=== PATIENT | female | born 1975 | race African-American/Black ===

== ENCOUNTER 2018-11-14 19:24 | Emergency (ER) | payer OTHER ==
--- NOTE | 2018-11-14 20:09 | RAD REPORT ---
EXAM DESCRIPTION: RAD - Ankle Right 3 View - 11/14/2018 7:55 pm CLINICAL HISTORY: PAIN COMPARISON: No comparisons FINDINGS: Soft tissue swelling is seen about the ankle. No fracture or dislocation seen. Small avuls ion is noted about the medial malleolus.
[2018-11-14] MEDS ORDERED: IBUPROFEN 400 MG TAB ONE (20:29)
--- NOTE | 2018-11-14 20:51 | EDPHYS ---
Physician Documentation [facility] Name: Ekaterina Chaudhari Age: 43 yrs Sex: Female : 1975 Arrival Date: 11/14/2018 Time: 19:29 Bed 5 Private MD: ED Physician Eric Martell HPI: 11/14 20:02 This 43 yrs old Black Female presents to ER via Ambulatory with complaints of Ankle kdr Injury. 20:02 The patient presents with decreased range of motion, an injury, pain, that is acute. kdr The complaints affect the right ankle. Onset: The symptoms/episode began/occurred yesterday. Context: The problem was sustained at home, resulted from The mechanism of injury involved inversion of the affected ankle. The patient can partially bear weight on the affected extremity. the patient is able to ambulate, with mild difficulty. Associated signs and symptoms: The patient has no apparent associated signs or symptoms. Modifying factors: The symptoms are alleviated by sitting, the symptoms are aggravated by weight bearing, movement. Severity of symptoms: At their worst the symptoms were mild, in the emergency department the symptoms are unchanged. The patient has not experienced similar symptoms in the past. The patient has not recently seen a physician. 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 - Social history:: Smoking status: Patient/guardian denies using tobacco. - Ebola Screening: : No symptoms or risks identified at this time. ROS: 20:02 Constitutional: Negative for fever, chills, and weight loss. kdr 20:02 MS/extremity: Positive for pain, swelling, tenderness, of the anterior aspect of right ankle. Exam: 20:02 Constitutional: This is a well developed, well nourished patient who is awake, alert, kdr and in no acute distress. Head/Face: Normocephalic, atraumatic. Eyes: Pupils equal round and reactive to light, extra-ocular motions intact. Lids and lashes normal. Conjunctiva and sclera are non-icteric and not injected. Cornea within normal limits. Periorbital areas with no swelling, redness, or edema. 20:02 Musculoskeletal/extremity: Extremities: grossly normal except: noted in the anterior aspect of right ankle and dorsum of right foot: pain. Vital Signs: 19:31 BP 121 / 87; Pulse 78; Resp 16; Temp 97.8; Pulse Ox 98% on R/A; Weight 101.15 kg; la1 Height 5 ft. 7 in. (170.18 cm); Pain 7/10; 20:33 BP 124 / 84; Pulse 74; Resp 16 S; Pulse Ox 97% on R/A; jd3 19:31 Body Mass Index 34.93 (101.15 kg, 170.18 cm) la1 MDM: 20:50 Patient medically screened. kdr 11/15 00:23 Data reviewed: vital signs, nurses notes, radiologic studies. Counseling: I had a kdr detailed discussion with the patient and/or guardian regarding: the historical points, exam findings, and any diagnostic results supporting the discharge/admit diagnosis, radiology results, the need for outpatient follow up. 11/14 19:37 Order name: Ankle Right 3 View XRAY; Complete Time: 20:43 11/14 20:53 Order name: Splint - Ankle: Aircast; Complete Time: 21:24 kdr 11/14 20:53 Order name: Crutches; Complete Time: 21:24 kdr Administered Medications: 11/14 20:19 Drug: Ibuprofen 800 mg Route: PO; aa1 21:15 Follow up: Response: No adverse reaction jd3 Disposition: 11/14/18 20:50 Discharged to Home. Impression: Dorsal Tarsal navicular fracture. - Condition is Stable. - Discharge Instructions: Tarsal Navicular Fracture, Avulsion Fracture of the Foot. - Prescriptions for Tylenol- Codeine #3 300-30 mg Oral Tablet - take 2 tablets by ORAL route every 4-6 hours As needed Take onoe or two tablets every four to six hours; 15 tablet. - Medication Reconciliation Form, Thank You Letter, Prescription Opioid Use, Work release form form. - Follow up: Private Physician; When: 2 - 3 days; Reason: If symptoms return, Further diagnostic work-up, Recheck today's complaints, Continuance of care, Re-evaluation by your physician. - Problem is new. - Symptoms have improved. Signatures: Dispatcher [employer] EDGracie Frances RN RN aa1 Eric Martell MD MD kdr Aaron Garcia RN RN la1 Stewart Herrera RN RN jd3 Corrections: (The following items were deleted from the chart) 21:26 20:50 11/14/2018 20:50 Discharged to Home. Impression: Dorsal Tarsal navicular jd3 fracture. Condition is Stable. Forms are Work release form, Medication Reconciliation Form, Thank You Letter, Antibiotic Education, Prescription Opioid Use. Follow up: Private Physician; When: 2 - 3 days; Reason: If symptoms return, Further diagnostic work-up, Recheck today's complaints, Continuance of care, Re-evaluation by your physician. Problem is new. Symptoms have improved. kdr
--- NOTE | 2018-11-14 20:51 | ER ---
Nurse's Notes [facility] Name: Ekaterina Chaudhari Age: 43 yrs Sex: Female : 1975 Arrival Date: 11/14/2018 Time: 19:29 Bed 5 Private MD: Diagnosis: Dorsal Tarsal navicular fracture Presentation: 11/14 19:30 Presenting complaint: Patient states: I rolled my right ankle on thrusday and have been la1 having pain since. Transition of care: patient was not received from another setting of care. Onset of symptoms was November 14, 2018. Risk Assessment: Do you want to hurt yourself or someone else? Patient reports no desire to harm self or others. Initial Sepsis Screen: Does the patient meet any 2 criteria? No. Patient's initial sepsis screen is negative. Does the patient have a suspected source of infection? No. Patient's initial sepsis screen is negative. Care prior to arrival: None. 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 - Social history:: Smoking status: Patient/guardian denies using tobacco. - Ebola Screening: : No symptoms or risks identified at this time. Screenin:29 Abuse screen: Denies threats or abuse. Nutritional screening: No deficits noted. jd3 Tuberculosis screening: No symptoms or risk factors identified. Fall Risk Ambulatory Aid- None/Bed Rest/Nurse Assist (0 pts). Gait- Normal/Bed Rest/Wheelchair (0 pts) Mental Status- Oriented to own ability (0 pts). Total Gale Fall Scale indicates No Risk (0-24 pts). Assessment: 20:28 General: Appears in no apparent distress. uncomfortable, Behavior is calm, cooperative, jd3 appropriate for age. Pain: Complains of pain in right ankle Quality of pain is described as aching. Neuro: Level of Consciousness is awake, alert, obeys commands, Oriented to person, place, time, situation, Appropriate for age. Cardiovascular: Capillary refill < 3 seconds Patient's skin is warm and dry. Respiratory: Airway is patent Respiratory effort is even, unlabored, Respiratory pattern is regular, symmetrical. GI: No signs and/or symptoms were reported involving the gastrointestinal system. : No signs and/or symptoms were reported regarding the genitourinary system. EENT: No signs and/or symptoms were reported regarding the EENT system. Derm: Skin is intact, Skin is dry, Skin is normal, Skin temperature is warm. Musculoskeletal: Circulation, motion, and sensation intact. Range of motion: limited in right ankle Reports pain in right ankle. 21:26 Reassessment: Patient appears in no apparent distress at this time. Patient and/or jd3 family updated on plan of care and expected duration. Pain level reassessed. Patient is alert, oriented x 3, equal unlabored respirations, skin warm/dry/pink. Patient states feeling better. Vital Signs: 19:31 BP 121 / 87; Pulse 78; Resp 16; Temp 97.8; Pulse Ox 98% on R/A; Weight 101.15 kg; la1 Height 5 ft. 7 in. (170.18 cm); Pain 7/10; 20:33 BP 124 / 84; Pulse 74; Resp 16 S; Pulse Ox 97% on R/A; jd3 19:31 Body Mass Index 34.93 (101.15 kg, 170.18 cm) la1 ED Course: 19:29 Patient arrived in ED. mr 19:31 Triage completed. la1 19:32 Arm band placed on left wrist. la1 19:33 Eric Martell MD is Attending Physician. kdr 19:54 Ankle Right 3 View XRAY In Process Unspecified. EDMS 20:14 Stewart Herrera, RN is Primary Nurse. jd3 20:30 Patient has correct armband on for positive identification. Bed in low position. Call jd3 light in reach. Side rails up X 1. Adult w/ patient. 21:25 No provider procedures requiring assistance completed. Patient did not have IV access jd3 during this emergency room visit. Administered Medications: 20:19 Drug: Ibuprofen 800 mg Route: PO; aa1 21:15 Follow up: Response: No adverse reaction jd3 Outcome: 20:50 Discharge ordered by . kdr 21:25 Discharged to home ambulatory, with crutches. jd3 21:25 Condition: stable 21:25 Discharge instructions given to patient, family, Instructed on discharge instructions, follow up and referral plans. medication usage, Demonstrated understanding of instructions, follow-up care, medications, Prescriptions given X 1. 21:26 Patient left the ED. jd3 Signatures: Dispatcher [employer] EDMS Gracie Gongora RN RN aa1 Eric Martell MD MD kdr Rivera, Mary mr Radha, HARRIS Walker RN la1 Stewart Herrera RN RN jd3
== END 2018-11-14 21:26 | disposition home or self-care (01) ==
LOC: ER 19:24
DX: S92.251A Displaced fracture of navicular [scaphoid] of right foot, initial encounter for closed fracture (principal); X58.XXXA Exposure to other specified factors, initial encounter; Y93.89 Activity, other specified; Y92.009 Unspecified place in unspecified non-institutional (private) residence as the place of occurrence of the external cause
CPT/HCPCS: 99283

== ENCOUNTER 2019-01-19 02:59 | Emergency (ER) | payer OTHER ==
--- OUTSIDE RECORDS SUMMARY | 2019-01-19 03:03 | XMS REPORT | Clinical Summary ---
:1975 Author Organization [facility] Address [address] [place] [address] Care Team Providers Name Role Phone Sharpalpa Primary Care Provider Allergies No Known Allergies Medications Not on file Active Problems Not on file Social History Tobacco Use Types Packs/Day Years Used Date Never Assessed Sex Assigned at Date Recorded Not on file Job Start Date Occupation Industry Not on file Not on file Not on file Travel History Travel Start Travel End No recent travel history available. Last Filed Vital Signs Not on file Plan of Treatment Not on file Results Not on fileafter 01/18/2018
[2019-01-19 03:51] LABS: Absolute Lymphocytes (CBC) 0.7 K/uL (0.7-4.9); Basophils % 0.8 % (0-1.3); Hematocrit 39.1 % (36.0-45.0); Lymphocytes % 12.4 % (15.3-44.8); MPV 8.9 fL (7.6-11.3); RBC Red Blood Cell Count 4.29 M/uL (3.86-4.86)
[2019-01-19 03:56] LABS: Urine Blood TRACE (NEG); Urine Glucose NEGATIVE (NEG); Urine Protein NEGATIVE (NEG)
[2019-01-19 04:10] LABS: Albumin 3.5 g/dL (3.4-5.0); Bilirubin Total 0.8 mg/dL (0.2-1.0); Ferritin 97.3 ng/mL (8-388); Potassium 4.1 mmol/L (3.5-5.1); Protein, Total 7.6 g/dL (6.4-8.2)
[2019-01-19 04:41] LABS: Urine Bacteria 20-50 /HPF (<20); Urine Culture Reflex Order REFLEXED; Urine RBC <5 /HPF (NONE SEEN)
--- NOTE | 2019-01-19 08:00 | ER ---
Nurse's Notes [facility] Name: Ekaterina Chaudhari Age: 43 yrs Sex: Female : 1975 Arrival Date: 01/19/2019 Time: 03:00 Bed 15 Private MD: Diagnosis: Ulceration of vagina Presentation: 01/19 03:17 Presenting complaint: Patient states: she is c/o sinus congestion, abdominal pain, bb cramping, vaginal bleeding s/p hysterectomy, pt had fever of 101 but did not take any medication for it. Transition of care: patient was not received from another setting of care. Onset of symptoms was January 18, 2019. Risk Assessment: Do you want to hurt yourself or someone else? Patient reports no desire to harm self or others. Initial Sepsis Screen: Does the patient meet any 2 criteria? No. Patient's initial sepsis screen is negative. Does the patient have a suspected source of infection? No. Patient's initial sepsis screen is negative. Care prior to arrival: None. 03:17 Method Of Arrival: Ambulatory bb 03:17 Acuity: DIANE 3 bb 03:23 Note pt also c/o urinary frequency. 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 - Social history:: Smoking status: Patient/guardian denies using tobacco, Patient/guardian denies using alcohol. - Ebola Screening: : No symptoms or risks identified at this time. Screenin:44 Abuse screen: Denies threats or abuse. Denies injuries from another. Nutritional lp1 screening: No deficits noted. Tuberculosis screening: No symptoms or risk factors identified. Fall Risk None identified. Assessment: 03:43 General: Appears in no apparent distress. Behavior is appropriate for age. Pain: lp1 Complains of pain in suprapubic area. Neuro: Level of Consciousness is awake, alert, obeys commands, Oriented to person, place, time, situation. Cardiovascular: Patient's skin is warm and dry. Respiratory: Respiratory effort is even, unlabored. GI: Abdomen is non-distended. : Reports vaginal bleeding that is brown. EENT: No signs and/or symptoms were reported regarding the EENT system. Derm: Skin is intact, Skin is dry, Skin is normal. Musculoskeletal: No deficits noted. 05:00 Reassessment: Patient appears in no apparent distress at this time. No changes from lp1 previously documented assessment. Patient resting, eyes closed, respirations unlabored. 06:20 Reassessment: Patient appears in no apparent distress at this time. Patient is alert, lp1 oriented x 3, equal unlabored respirations, skin warm/dry/pink. Patient returned form CT; aware of waiting for results. 07:09 General: Appears in no apparent distress. uncomfortable, Behavior is calm, cooperative, hj appropriate for age. Pain: Complains of pain in suprapubic area. Neuro: Level of Consciousness is awake, alert, obeys commands, Oriented to person, place, time, situation, Appropriate for age. Cardiovascular: Capillary refill < 3 seconds Patient's skin is warm and dry. Respiratory: Reports pain with respiration Respiratory effort is even, unlabored, Respiratory pattern is regular, symmetrical. GI: No signs and/or symptoms were reported involving the gastrointestinal system. : No signs and/or symptoms were reported regarding the genitourinary system. 07:54 Reassessment: ED provider with counter intelligence technician in room for pelvic exam. Vital Signs: 03:22 BP 119 / 84; Pulse 95; Resp 16 S; Temp 99.7(O); Pulse Ox 98% on R/A; Weight 99.79 kg bb (R); Height 5 ft. 6 in. (167.64 cm) (R); Pain 4/10; 06:20 BP 112 / 94; Pulse 81; Resp 16; Temp 98.7(O); Pulse Ox 100% on R/A; lp1 07:10 BP 119 / 80; Pulse 80; Resp 18; Temp 98.1(O); Pulse Ox 98% on R/A; hj 08:22 BP 120 / 78; Pulse 79; Resp 18; Pulse Ox 100% on R/A; hj 03:22 Body Mass Index 35.51 (99.79 kg, 167.64 cm) ED Course: 03:00 Patient arrived in ED. ds1 03:03 Samir Elliott MD is Attending Physician. ps1 03:05 Nany Nick, RN is Primary Nurse. lp1 03:21 Triage completed. bb 03:22 Arm band placed on Patient placed in an exam room, on a stretcher, on pulse oximetry. bb 03:25 Inserted saline lock: 20 gauge in right antecubital area, using aseptic technique. lp1 Blood collected. 03:39 Radiology exam delayed due to lab results not completed at this time. (BUN/Creatinine). kw1 03:44 Patient has correct armband on for positive identification. lp1 06:20 CT Abd/Pelvis - IV Contrast Only In Process Unspecified. EDMS 06:21 No provider procedures requiring assistance completed. lp1 07:50 Attending Physician role handed off by Samir Elliott MD 07:50 Anthony Estrada MD is Attending Physician. gs 08:21 IV discontinued, intact, bleeding controlled, No redness/swelling at site. Pressure hj dressing applied. Administered Medications: No medications were administered Outcome: 07:59 Discharge ordered by . gs 08:20 Discharged to home ambulatory. hj 08:20 Condition: stable 08:20 Discharge instructions given to patient, Instructed on discharge instructions, follow up and referral plans. medication usage, Demonstrated understanding of instructions, follow-up care, medications, Prescriptions given X 1. 08:21 Patient left the ED. hj Signatures: Dispatcher [employer] [facility] Roxy El ds1 Sofy Dorman RN RN bb Nany Nick, RN RN lp1 Torrey Pagan, RN Anthony Byrne MD MD Samir Elliott MD MD [facility] Shandra Mancini kw1
--- NOTE | 2019-01-19 08:01 | EDPHYS ---
Physician Documentation [facility] Name: Ekaterina Chaudhari Age: 43 yrs Sex: Female : 1975 Arrival Date: 01/19/2019 Time: 03:00 Bed 15 Private MD: ED Physician Anthony Estrada HPI: 01/19 05:31 This 43 yrs old Black Female presents to ER via Ambulatory with complaints of Vaginal ps1 Bleeding, Headache, Fever. 05:31 patient states that she woke up tonight with vaginal bleeding from sleep. She states ps1 that she is s/p hysterectomy 2/2 fibroids years ago. Additionally has Fe anemia. No abnormal pap smears in past. Recently started taking celexa. States that she also has sinus congestion. No fever. Additionally states that she has polyuria, polydipsia, and frequency. 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 - Social history:: Smoking status: Patient/guardian denies using tobacco, Patient/guardian denies using alcohol. - Ebola Screening: : No symptoms or risks identified at this time. ROS: 05:31 Constitutional: Negative for fever, chills, and weight loss, Eyes: Negative for injury, ps1 pain, redness, and discharge, Cardiovascular: Negative for chest pain, palpitations, and edema, Respiratory: Negative for shortness of breath, cough, wheezing, and pleuritic chest pain. 05:31 Abdomen/GI: Positive for abdominal pain, constipation. 05:31 : Positive for urinary frequency, hematuria, vaginal bleeding. 05:31 Endocrine: Positive for polydipsia, polyuria. Exam: 05:31 Constitutional: This is a well developed, well nourished patient who is awake, alert, ps1 and in no acute distress. Head/Face: Normocephalic, atraumatic. Eyes: Pupils equal round and reactive to light, extra-ocular motions intact. Lids and lashes normal. Conjunctiva and sclera are non-icteric and not injected. Cardiovascular: Regular rate and rhythm. No gallops, murmurs, or rubs. Normal PMI, no JVD. No pulse deficits. Respiratory: Lungs have equal breath sounds bilaterally, clear to auscultation and percussion. No rales, rhonchi or wheezes noted. No increased work of breathing, no retractions or nasal flaring. Abdomen/GI: Soft, non-tender, with normal bowel sounds. No distension or tympany. No guarding or rebound. No evidence of tenderness throughout. Skin: Warm, dry with normal turgor. Normal color with no rashes, no lesions, and no evidence of cellulitis. MS/ Extremity: Pulses equal, no cyanosis. Neurovascular intact. Full, normal range of motion. Neuro: Awake and alert, GCS 15, oriented to person, place, time, and situation. Cranial nerves II-XII grossly intact. Sensory grossly intact. 07:51 : Pelvic Exam: Speculum exam: d/c appears to have cuff ulcer no bleeding. Vital Signs: 03:22 BP 119 / 84; Pulse 95; Resp 16 S; Temp 99.7(O); Pulse Ox 98% on R/A; Weight 99.79 kg bb (R); Height 5 ft. 6 in. (167.64 cm) (R); Pain 4/10; 06:20 BP 112 / 94; Pulse 81; Resp 16; Temp 98.7(O); Pulse Ox 100% on R/A; lp1 07:10 BP 119 / 80; Pulse 80; Resp 18; Temp 98.1(O); Pulse Ox 98% on R/A; hj 08:22 BP 120 / 78; Pulse 79; Resp 18; Pulse Ox 100% on R/A; hj 03:22 Body Mass Index 35.51 (99.79 kg, 167.64 cm) bb MDM: 03:37 Patient medically screened. ps1 07:51 Data reviewed: vital signs, nurses notes, lab test result(s), radiologic studies. Counseling: I had a detailed discussion with the patient and/or guardian regarding: the historical points, exam findings, and any diagnostic results supporting the discharge/admit diagnosis, lab results, radiology results, the need for outpatient follow up, an OB/Gyne specialist. Response to treatment: There is no appreciated change of the patient's symptoms at this time, and as a result, I will discharge patient. 01/19 03:17 Order name: CBC with Diff; Complete Time: 04:53 ps1 01/19 03:17 Order name: CMP; Complete Time: 04:53 ps1 01/19 03:17 Order name: Iron Level; Complete Time: 04:53 ps1 01/19 03:35 Order name: Urine Dipstick--Ancillary (enter results); Complete Time: 04:53 ar5 01/19 04:11 Order name: Urine Microscopic Only; Complete Time: 04:53 lp1 01/19 04:42 Order name: Urine Culture EDMS 01/19 03:17 Order name: Urine Dipstick-Ancillary (obtain specimen); Complete Time: 03:45 ps1 01/19 05:30 Order name: CT Abd/Pelvis - IV Contrast Only ps1 Administered Medications: No medications were administered Disposition: 01/19/19 07:59 Discharged to Home. Impression: Ulceration of vagina. - Condition is Stable. - Prescriptions for Metronidazole 0.75 % Vaginal Gel - insert 37.5 milligram by VAGINAL route once daily As needed in the morning and evening; 1 tube. - Medication Reconciliation Form, Thank You Letter, Antibiotic Education, Prescription Opioid Use form. - Follow up: Private Physician; When: 2 - 3 days; Reason: Re-evaluation by your physician. Signatures: Dispatcher [facility] Sofy Dorman RN RN bb Joaquin, Henry, RN RN hj Starr, Gregory, MD MD gs Samir Elliott MD MD ps1 Corrections: (The following items were deleted from the chart) 03:51 03:18 Abdomen Pelvis W Con+CT.RAD.BRZ ordered. [facility] 08:21 07:59 01/19/2019 07:59 Discharged to Home. Impression: Ulceration of vagina. Condition hj is Stable. Forms are Medication Reconciliation Form, Thank You Letter, Antibiotic Education, Prescription Opioid Use. Follow up: Private Physician; When: 2 - 3 days; Reason: Re-evaluation by your physician. gs
--- NOTE | 2019-01-19 09:46 | RAD REPORT ---
EXAM DESCRIPTION: CT - Abdomen Pelvis W Contrast - 01/19/2019 6:48 am CLINICAL HISTORY: The patient is 43 years old and is Female; vaginal bleeding, constipation, s/p hys t TECHNIQUE: Axial computed tomography images of the abdomen and pelvis with intravenous contrast. S agittal and coronal reformatted images were created and reviewed. This CT exam was performed using one or more of the following dose reduction techniques: automated exposure control, adjustment of t he mA and/or kV according to patient size, and/or use of iterative reconstruction technique. COMPARISON: No relevant prior studies available. FINDINGS: LUNG BASES: Unremarkable. No mass. No consolidation. ABDOMEN: LIVER: Focal 1 cm hyperattenuating lesion within the right hepatic lobe is present. On the alessia l venous phase images, this lesion is no longer visualized and most likely represents a flash filling hemangioma. The liver is otherwise unremarkable. GALLBLADDER AND BILE DUCTS: The gallbladder is not well distended. PANCREAS: No ductal dilation. No mass. SPLEEN: Unremarkable. ADRENALS: Unremarkable. No mass. KIDNEYS AND URETERS: Unremarkable. No solid mass. No hydronephrosis. STOMACH AND BOWEL: The stomach is minimally distended with food contents. The small bowel is rel atively normal in caliber. A moderate amount stool is present throughout the colon. There is no mucos al thickening or evidence of bowel obstruction. PELVIS: APPENDIX: The appendix is normal in caliber without surrounding inflammation. BLADDER: Unremarkable. No mass. REPRODUCTIVE: The patient is status post hysterectomy. The ovaries are unremarkable. ABDOMEN and PELVIS: INTRAPERITONEAL SPACE: Unremarkable. No free air. No significant fluid collection. BONES/JOINTS: No acute fracture. SOFT TISSUES: Evidence of a midline abdominal incision is noted. VASCULATURE: Several calcifications are present within the pelvis suggestive of phleboliths. The vascular structures are normal in course and caliber. LYMPH NODES: Unremarkable. No enlarged lymph nodes. IMPRESSION: No acute findings on this contrasted CT of the abdomen and pelvis to explain the patient 's symptoms. Chronic findings as detailed above. Electronically signed by: Perri Dominguez MD 01/19/2019 6:39 AM CDT Due to temporary technical issues with the PACS/Fluency reporting system, reports are being signed by the in house radiologist as a courtesy to ensure prompt reporting. The interpreting radiologist is f ully responsible for the content of the report.
== END 2019-01-19 08:21 | disposition home or self-care (01) ==
LOC: ER 02:59
DX: N76.5 Ulceration of vagina (principal); F41.9 Anxiety disorder, unspecified; F32.9 Major depressive disorder, single episode, unspecified
CPT/HCPCS: 36415; 74177; 80053; 81003; 81015; 82728; 85025; 87086; 87088; 99284; Q9967

== ENCOUNTER 2019-05-13 08:16 | Emergency (ER) | payer OTHER, SELFPAY ==
[2019-05-13] MEDS ORDERED: ALBUTEROL 2.5 MG/3 ML NEB SOL ONE (08:50)
[2019-05-13] MEDS ORDERED: IPRATROPIUM BROM 0.5MG/2.5ML ONE (08:50)
[2019-05-13] MEDS ORDERED: BUPIVACAINE 0.5% PF 10 ML VIAL ONE (08:51)
[2019-05-13] MEDS ORDERED: TETANUS & DIPHTHERIA TOX,ADULT 0.5 ML VIAL ONE (08:53)
--- NOTE | 2019-05-13 09:29 | ER ---
Nurse's Notes [facility] Name: Ekaterina Chaudhari Age: 44 yrs Sex: Female : 1975 Arrival Date: 05/13/2019 Time: 08:19 Bed 17 Private MD: None, None Diagnosis: Finger Laceration Presentation: 05/13 08:31 Presenting complaint: Patient states: Sliced right index finger with kitchen knife jl7 about 30 minutes, no uncontrolled bleeding. Transition of care: patient was not received from another setting of care. Onset of symptoms was May 13, 2019 at 08:00. Risk Assessment: Do you want to hurt yourself or someone else? Patient reports no desire to harm self or others. Initial Sepsis Screen: Does the patient meet any 2 criteria? No. Patient's initial sepsis screen is negative. Does the patient have a suspected source of infection? No. Patient's initial sepsis screen is negative. Care prior to arrival: None. 08:31 Method Of Arrival: Ambulatory jl7 08:31 Acuity: DIANE 4 jl7 Triage Assessment: 08:33 General: Appears in no apparent distress. uncomfortable, Behavior is calm, cooperative, jl7 appropriate for age. Pain: Complains of pain in dorsal aspect of proximal phalanx of right index finger Pain currently is 6 out of 10 on a pain scale. Neuro: Level of Consciousness is awake, alert, obeys commands, Oriented to person, place, time, situation. Cardiovascular: Patient's skin is warm and dry. Respiratory: Airway is patent Respiratory effort is even, unlabored, Respiratory pattern is regular, symmetrical. Derm: Skin is pink, warm \T\ dry. Injury Description: Laceration sustained to dorsal aspect of proximal phalanx of right index finger is contaminated, 0.5 to 2.5 cm long, was sustained 30-60 minutes ago. no active bleeding noted at this time. 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 - Social history:: Smoking status: Patient/guardian denies using tobacco. - Ebola Screening: : No symptoms or risks identified at this time. Screenin:30 Abuse screen: Denies threats or abuse. Denies injuries from another. Nutritional jl7 screening: No deficits noted. Tuberculosis screening: No symptoms or risk factors identified. Fall Risk None identified. Assessment: 08:30 General: See triage assessment. jl7 09:30 Reassessment: Patient appears in no apparent distress at this time. Patient denies pain jl7 at this time. Vital Signs: 08:33 BP 115 / 73; Pulse 79; Resp 14 S; Temp 98.4(O); Pulse Ox 100% on R/A; Pain 6/10; jl7 ED Course: 08:19 Patient arrived in ED. ag5 08:19 Darryl Floyd, RN is Primary Nurse. bp 08:20 None, None is Private Physician. [facility] 08:22 [facility] 08:23 Eric Martell MD is Attending Physician. [facility] 08:30 Patient has correct armband on for positive identification. Bed in low position. Call jl7 light in reach. Side rails up X 1. 08:32 Triage completed. 7 08:33 Arm band placed on right wrist. [facility] 09:50 No provider procedures requiring assistance completed. Patient did not have IV access jl7 during this emergency room visit. 09:51 Kobe Belcher, RN is Primary Nurse. [facility] Administered Medications: 08:57 Drug: Tetanus-Diphtheria Toxoid Adult 0.5 ml {Medical And Health Services Manager: [employer]. Exp: jl7 12/10/2020. Lot #: [id number]. } Route: IM; Site: left deltoid; 09:13 Follow up: Response: No adverse reaction jl Outcome: 09:28 Discharge ordered by . [facility] 09:50 Discharged to home ambulatory. 7 09:50 Condition: stable 09:50 Discharge instructions given to patient, family, Instructed on discharge instructions, follow up and referral plans. Demonstrated understanding of instructions, follow-up care. 09:51 Patient left the ED. [facility] Signatures: Andre Toure PA PA jmm Leal, Jahala, RN RN jl7 Peltier, Brian, RN RN bp Pranav Cifuentes ag5
--- NOTE | 2019-05-13 09:29 | EDPHYS ---
Physician Documentation [facility] Name: Ekaterina Chaudhari Age: 44 yrs Sex: Female : 1975 Arrival Date: 05/13/2019 Time: 08:19 Bed 17 Private MD: None, None ED Physician Eric Martell HPI: 05/13 08:43 This 44 yrs old Black Female presents to ER via Ambulatory with complaints of Finger jmm Lac. 08:43 The patient or guardian reports injury, a laceration. Onset: The symptoms/episode jmm began/occurred acutely. Modifying factors: The symptoms are alleviated by nothing, the symptoms are aggravated by nothing. Associated signs and symptoms: Pertinent negatives: decreased sensation distally, fever, numbness distally. This is a 44 year old female with a history of anxiety, depression that presents to the ED with complaints of right finger pain beginning after accidently cutting herself with a knife. Patient is not UTD on immunizations. . 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 - Social history:: Smoking status: Patient/guardian denies using tobacco. - Ebola Screening: : No symptoms or risks identified at this time. ROS: 08:43 Constitutional: Negative for fever, chills, and weight loss, Cardiovascular: Negative jmm for chest pain, palpitations, and edema, Respiratory: Negative for shortness of breath, cough, wheezing, and pleuritic chest pain. 08:43 MS/extremity: Positive for injury or acute deformity, laceration. 08:43 Skin: Positive for laceration(s). 08:43 All other systems are negative. Exam: 08:43 Constitutional: This is a well developed, well nourished patient who is awake, alert, jmm and in no acute distress. Head/Face: atraumatic. Eyes: EOMI, no conjunctival erythema appreciated ENT: Moist Mucus Membranes Neck: Trachea midline, Supple Chest/axilla: Normal chest wall appearance and motion. Cardiovascular: Regular rate and rhythm. No edema appreciated Respiratory: Normal respirations, no respiratory distress appreciated Abdomen/GI: Non distended, soft Back: Normal ROM 08:43 Skin: 1.5 cm laceration noted to the right 2nd proximal phalanx. no active bleeding is appreciated. . 09:29 Musculoskeletal/extremity: FROM appreciated to the right 2nd phalanx, < 2 sec dist cap jmm refill, NVI. 09:29 Neuro: Orientation: is normal, Mentation: is normal, Memory: is normal. 09:29 Psych: Behavior/mood is pleasant, cooperative. Vital Signs: 08:33 BP 115 / 73; Pulse 79; Resp 14 S; Temp 98.4(O); Pulse Ox 100% on R/A; Pain 6/10; jl7 Laceration: 09:26 Wound Repair of 1.5cm ( 0.6in ) subcutaneous laceration to dorsal aspect of proximal jmm phalanx of right index finger. Distal neuro/vascular/tendon intact. Anesthesia: Local anesthetic administered with 3 mls of 0.5% marcaine. Wound prep: Moderate cleansing with betadine by me. Skin closed with 2 5-0 Prolene using simple sutures and sterile technique. Patient tolerated well. MDM: 08:43 Patient medically screened. [facility] 09:26 Data reviewed: vital signs, nurses notes. Counseling: I had a detailed discussion with poncho the patient and/or guardian regarding: the historical points, exam findings, and any diagnostic results supporting the discharge/admit diagnosis, the need for outpatient follow up, to return to the emergency department if symptoms worsen or persist or if there are any questions or concerns that arise at home. ED course: Patient given wound infection return precautions. patient understood and agrees with the plan of care.. 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 Exp: jl7 12/10/2020. Lot #: [id number]. } Route: IM; Site: left deltoid; 09:13 Follow up: Response: No adverse reaction jl7 Disposition: 11:47 Co-signature as Attending Physician, Eric Martell MD I agree with the assessment and kdr plan of care. Disposition: 05/13/19 09:28 Discharged to Home. Impression: Finger Laceration. - Condition is Stable. - Discharge Instructions: Laceration Care, Adult. - Medication Reconciliation Form, Thank You Letter, Antibiotic Education, Prescription Opioid Use form. - Follow up: Private Physician; When: 7 - 10 days; Reason: Recheck today's complaints, Continuance of care, Staple/Suture removal, Re-evaluation by your physician. Signatures: Eric Martell MD MD kdr Mickail, Joel, PA PA jmm Leal, Jahala, RN RN jl7 Corrections: (The following items were deleted from the chart) 09:31 08:43 Skin: 1.5 cm laceration noted to the right 2nd proximal phalanx. n oacitve poncho bleeding is appreciated. . poncho 09:51 09:28 05/13/2019 09:28 Discharged to Home. Impression: Finger Laceration. Condition is jl7 Stable. Forms are Medication Reconciliation Form, Thank You Letter, Antibiotic Education, Prescription Opioid Use. Follow up: Private Physician; When: 7 - 10 days; Reason: Recheck today's complaints, Continuance of care, Staple/Suture removal, Re-evaluation by your physician. poncho
[2019-05-13 13:42] VITALS: BP 115/73; TEMP 98.4; O2SAT 100
== END 2019-05-13 09:51 | disposition home or self-care (01) ==
LOC: ER 08:16
PROC: 0JQJ0ZZ Repair Right Hand Subcutaneous Tissue and Fascia, Open Approach (ICD-10-PCS; principal; 2019-05-13)
DX: S61.210A Laceration without foreign body of right index finger without damage to nail, initial encounter (principal); W26.0XXA Contact with knife, initial encounter; Y93.9 Activity, unspecified; Y92.000 Kitchen of unspecified non-institutional (private) residence as the place of occurrence of the external cause; Z23 Encounter for immunization
CPT/HCPCS: 90471; 90714; 99283

== ENCOUNTER 2019-11-06 17:35 | Emergency (ER) | payer OTHER, SELFPAY ==
--- NOTE | 2019-11-06 18:36 | RAD REPORT ---
EXAM DESCRIPTION: RAD -Hand Left 3 View - 11/06/2019 6:23 pm CLINICAL HISTORY: Left hand pain status post injury FINDINGS: No fracture or dislocation is seen.
--- NOTE | 2019-11-06 18:39 | EDPHYS ---
Physician Documentation [facility] Name: Ekaterina Chaudhari Age: 44 yrs Sex: Female : 1975 Arrival Date: 11/06/2019 Time: 17:37 Bed 24 Private MD: ED Physician Rudy Vizcarra HPI: 11/05 18:14 This 44 yrs old Black Female presents to ER via Ambulatory with complaints of Hand kb Injury. 18:14 The patient or guardian reports injury, pain, swelling, tenderness. The complaints kb affect the dorsum of left hand. Context: The problem was sustained at home, resulted from a direct blow, fan. Onset: The symptoms/episode began/occurred just prior to arrival. Modifying factors: The symptoms are alleviated by nothing, the symptoms are aggravated by nothing. Associated signs and symptoms: Pertinent positives: tingling distally, Pertinent negatives: cyanosis distally, decreased sensation distally, fever, nausea, numbness distally, vomiting. Severity of symptoms: At their worst the symptoms were mild, in the emergency department the symptoms are unchanged. The patient has not experienced similar symptoms in the past. The patient has not recently seen a physician. Pt reports she was standing on the bed to hand some blinds, lost her balance and fell backwards with her hand in the air. States the ceiling fan was on and her hand got hit by the blades. . 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 - Social history:: Smoking status: . ROS: 18:12 Constitutional: Negative for fever, chills, and weight loss, Cardiovascular: Negative kb for chest pain, palpitations, and edema, Respiratory: Negative for shortness of breath, cough, wheezing, and pleuritic chest pain, Abdomen/GI: Negative for abdominal pain, nausea, vomiting, diarrhea, and constipation, Back: Negative for injury and pain, Skin: Negative for injury, rash, and discoloration, Neuro: Negative for headache, weakness, numbness, tingling, and seizure. 18:12 MS/extremity: Positive for pain, swelling, tenderness, of the dorsum of left hand. Exam: 18:13 Constitutional: This is a well developed, well nourished patient who is awake, alert, kb and in no acute distress. Head/Face: Normocephalic, atraumatic. Chest/axilla: Normal chest wall appearance and motion. Nontender with no deformity. No lesions are appreciated. Cardiovascular: Regular rate and rhythm with a normal S1 and S2. No gallops, murmurs, or rubs. Normal PMI, no JVD. No pulse deficits. Respiratory: Lungs have equal breath sounds bilaterally, clear to auscultation and percussion. No rales, rhonchi or wheezes noted. No increased work of breathing, no retractions or nasal flaring. Abdomen/GI: Soft, non-tender, with normal bowel sounds. No distension or tympany. No guarding or rebound. No evidence of tenderness throughout. Skin: Warm, dry with normal turgor. Normal color with no rashes, no lesions, and no evidence of cellulitis. Neuro: Awake and alert, GCS 15, oriented to person, place, time, and situation. Cranial nerves II-XII grossly intact. Motor strength 5/5 in all extremities. Sensory grossly intact. Cerebellar exam normal. Normal gait. 18:13 Musculoskeletal/extremity: Extremities: grossly normal except: noted in the dorsum of left hand: pain, swelling, tenderness, ROM: intact in all extremities, Circulation is intact in all extremities. Tingling of extremity. Vital Signs: 17:50 BP 136 / 88; Pulse 77; Resp 16; Temp 98.1(O); Pulse Ox 97% on R/A; Weight 108.86 kg; iw Height 5 ft. 5 in. (165.10 cm); Pain 8/10; 17:50 Body Mass Index 39.94 (108.86 kg, 165.10 cm) iw MDM: 17:51 Patient medically screened. kb 18:12 Data reviewed: vital signs, nurses notes. Data interpreted: Pulse oximetry: on room air kb is 97 %. Interpretation: normal. 18:38 Counseling: I had a detailed discussion with the patient and/or guardian regarding: the kb historical points, exam findings, and any diagnostic results supporting the discharge/admit diagnosis, radiology results, the need for outpatient follow up, a family practitioner, to return to the emergency department if symptoms worsen or persist or if there are any questions or concerns that arise at home. 11/05 17:51 Order name: Hand Left 3 View XRAY; Complete Time: 18:38 kb Administered Medications: No medications were administered Disposition: 11/06 07:05 Co-signature as Attending Physician, Rudy Vizcarra MD. rn Disposition: 11/06/19 18:39 Discharged to Home. Impression: Contusion of left hand. - Condition is Stable. - Discharge Instructions: Hand Contusion, [id number]. - Medication Reconciliation Form, Thank You Letter, Antibiotic Education, Prescription Opioid Use form. - Follow up: Emergency Department; When: As needed; Reason: Worsening of condition. Follow up: Private Physician; When: 2 - 3 days; Reason: Recheck today's complaints, Continuance of care, Re-evaluation by your physician. Signatures: Dispatcher [employer] EDMS Argelia Rod, CUT OFF SAW OPERATOR METAL-C CUT OFF SAW OPERATOR METAL-Pam Alva RN RN Rudy Sosa MD MD registered nurse maternal child: (The following items were deleted from the chart) 11/05 19:02 18:39 11/06/2019 18:39 Discharged to Home. Impression: Contusion of left hand. iw Condition is Stable. Forms are Medication Reconciliation Form, Thank You Letter, Antibiotic Education, Prescription Opioid Use. Follow up: Emergency Department; When: As needed; Reason: Worsening of condition. Follow up: Private Physician; When: 2 - 3 days; Reason: Recheck today's complaints, Continuance of care, Re-evaluation by your physician. kb
--- NOTE | 2019-11-06 18:39 | ER ---
Nurse's Notes [facility] Name: Ekaterina Chaudhari Age: 44 yrs Sex: Female : 1975 Arrival Date: 11/06/2019 Time: 17:37 Bed 24 Private MD: Diagnosis: Contusion of left hand Presentation: 11/05 17:48 Chief complaint: Patient states: got left hand caught in ceiling fan, feels numb and iw has pins and needles. Coronavirus screen: Proceed with normal triage. Patient denies a cough. Patient denies shortness of breath or difficulty breathing. Patient denies measured and/or subjective temperature greater than 100.4F prior to today's visit. Patient denies travel on a cruise ship or to a country the [facility] currently lists as an affected area. Patient denies contact with known and/or suspected case of COVID-19. Ebola Screen: Patient negative for fever greater than or equal to 101.5 degrees Fahrenheit, and additional compatible Ebola Virus Disease symptoms Patient denies exposure to infectious person. Patient denies travel to an Ebola-affected area in the 21 days before illness onset. No symptoms or risks identified at this time. Initial Sepsis Screen: Does the patient meet any 2 criteria? No. Patient's initial sepsis screen is negative. Does the patient have a suspected source of infection? No. Patient's initial sepsis screen is negative. Risk Assessment: Do you want to hurt yourself or someone else? Patient reports no desire to harm self or others. Onset of symptoms was November 06, 2019. 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 - Social history:: Smoking status: . Screenin:20 Abuse screen: Denies threats or abuse. Denies injuries from another. Nutritional iw screening: No deficits noted. Tuberculosis screening: No symptoms or risk factors identified. Fall Risk None identified. Assessment: 18:19 General: Appears in no apparent distress. comfortable, Behavior is calm, cooperative. iw Pain: Complains of pain in left hand and dorsum of left hand. Neuro: Level of Consciousness is awake, alert, obeys commands, Oriented to person, place, time, situation. Cardiovascular: Capillary refill < 3 seconds in bilateral fingers Patient's skin is warm and dry. Respiratory: Respiratory effort is even, unlabored, Respiratory pattern is regular, symmetrical. Derm: Skin is intact, is healthy with good turgor. Musculoskeletal: Range of motion: intact in all extremities. Injury Description: Bruise sustained to dorsum of left hand. Vital Signs: 17:50 BP 136 / 88; Pulse 77; Resp 16; Temp 98.1(O); Pulse Ox 97% on R/A; Weight 108.86 kg; iw Height 5 ft. 5 in. (165.10 cm); Pain 8/10; 17:50 Body Mass Index 39.94 (108.86 kg, 165.10 cm) iw ED Course: 17:37 Patient arrived in ED. ag5 17:49 Triage completed. iw 17:51 Argelia Rod FNP-C is [facility]. kb 17:51 Rudy Vizcarra MD is Attending Physician. kb 18:19 Pam Newman, RN is Primary Nurse. iw 18:20 Patient has correct armband on for positive identification. iw 18:20 No provider procedures requiring assistance completed. Patient did not have IV access iw during this emergency room visit. 18:23 Hand Left 3 View XRAY In Process Unspecified. EDMS 19:00 Arm band placed on. iw Administered Medications: No medications were administered Outcome: 18:39 Discharge ordered by MD. kb 19:01 Discharged to home ambulatory. iw 19:01 Condition: good 19:01 Discharge instructions given to patient, Instructed on discharge instructions, follow up and referral plans. Demonstrated understanding of instructions, follow-up care. 19:02 Patient left the ED. iw Signatures: Dispatcher [employer] EDMS Argelia Rod FNP-C FNP-Pam Alva, RN RN iw Pranav Cifuentes ag5 Corrections: (The following items were deleted from the chart) 17:52 17:50 BP 136 / 88; Pulse 77bpm; Resp 16bpm; Pulse Ox 97% RA; iw iw
[2019-11-06 19:18] VITALS: BP 136/88; TEMP 98.1; O2SAT 97
== END 2019-11-06 19:02 | disposition home or self-care (01) ==
LOC: ER 17:35
DX: S60.222A Contusion of left hand, initial encounter (principal); W22.8XXA Striking against or struck by other objects, initial encounter; Y92.009 Unspecified place in unspecified non-institutional (private) residence as the place of occurrence of the external cause
CPT/HCPCS: 99283

== ENCOUNTER 2020-02-04 09:16 | Emergency (ER) | payer OTHER ==
--- NOTE | 2020-02-04 09:57 | EDPHYS ---
Physician Documentation [facility] Name: Ekaterina Chaudhari Age: 44 yrs Sex: Female : 1975 Arrival Date: 02/04/2020 Time: 09:19 Bed 19 Private MD: Adi Romeo HPI: 02/03 09:51 This 44 yrs old Black Female presents to ER via Ambulatory with complaints of jr8 Laceration To Hand. 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 The jr8 laceration(s) is(are) located on the left hand. Onset: The symptoms/episode began/occurred acutely, today. Associated signs and symptoms: The patient has no apparent associated signs or symptoms. The patient has not experienced similar symptoms in the past. The patient has not recently seen a physician. 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 - Social history:: Smoking status: Patient denies any tobacco usage or history of. ROS: 09:51 Eyes: Negative for injury, pain, redness, and discharge, ENT: Negative for injury, jr8 pain, and discharge, Neck: Negative for injury, pain, and swelling, Cardiovascular: Negative for chest pain, palpitations, and edema, Respiratory: Negative for shortness of breath, cough, wheezing, and pleuritic chest pain, Abdomen/GI: Negative for abdominal pain, nausea, vomiting, diarrhea, and constipation, Back: Negative for injury and pain, MS/Extremity: Negative for injury and deformity, Neuro: Negative for headache, weakness, numbness, tingling, and seizure. 09:51 Skin: Positive for laceration(s), of the left hand. Exam: 09:51 Constitutional: This is a well developed, well nourished patient who is awake, alert, jr8 and in no acute distress. Cardiovascular: Regular rate and rhythm with a normal S1 and S2. No gallops, murmurs, or rubs. Normal PMI, no JVD. No pulse deficits. Respiratory: Lungs have equal breath sounds bilaterally, clear to auscultation and percussion. No rales, rhonchi or wheezes noted. No increased work of breathing, no retractions or nasal flaring. MS/ Extremity: Pulses equal, no cyanosis. Neurovascular intact. Full, normal range of motion. Neuro: Awake and alert, GCS 15, oriented to person, place, time, and situation. Cranial nerves II-XII grossly intact. Motor strength 5/5 in all extremities. Sensory grossly intact. Cerebellar exam normal. Normal gait. 09:51 Skin: three small superficial lacerations noted to left hand thenar region. Bleeding controlled . Vital Signs: 09:23 BP 129 / 5; Pulse 82; Resp 16; Temp 98.2; Pulse Ox 98% ; Weight 107.5 kg; Height 5 ft. hb 5 in. (165.10 cm); Pain 7/10; 09:23 Body Mass Index 39.44 (107.50 kg, 165.10 cm) hb MDM: 09:28 Patient medically screened. jr8 09:50 Data reviewed: vital signs, nurses notes, and as a result, I will discharge patient. jr8 Data interpreted: Pulse oximetry: on room air is 98 %. Interpretation: normal. Counseling: I had a detailed discussion with the patient and/or guardian regarding: the historical points, exam findings, and any diagnostic results supporting the discharge/admit diagnosis, the need for outpatient follow up, a family practitioner, to return to the emergency department if symptoms worsen or persist or if there are any questions or concerns that arise at home. 09:51 ED course: Superficial lacerations noted. Nothing requiring adhesive or sutures. Wound jr8 cleaned and dressed. Tetanus given. Can f/u as needed. If worse to come back. 02/03 09:50 Order name: Wound Care; Complete Time: 10:13 jr8 02/03 09:50 Order name: Wound dressing; Complete Time: 10:13 jr8 Administered Medications: 10:02 Drug: Tetanus-Diphtheria Toxoid Adult 0.5 ml {Grants Administrator: [email or web address]. Exp: ph 08/26/2022. Lot #: [id number]. } Route: IM; Site: right deltoid; 10:13 Follow up: Response: No adverse reaction ph Disposition: 11:39 Co-signature as Attending Physician, Adi Ferris MD I agree with the assessment and kenneth plan of care. Disposition: 02/04/20 09:56 Discharged to Home. Impression: Laceration without foreign body of left hand. - Condition is Stable. - Discharge Instructions: Laceration Care, Adult. - Medication Reconciliation Form, Thank You Letter, Antibiotic Education, Prescription Opioid Use, Work release form form. - Follow up: Private Physician; When: As needed; Reason: Wound Recheck, Recheck today's complaints, Continuance of care, Re-evaluation by your physician. - Problem is new. - Symptoms have improved. Signatures: Adi Ferris MD MD cha Roszak, Josh, PA PA jr8 Elizabeth Singh, RN RN ph Yun Keys RN RN Corrections: (The following items were deleted from the chart) 10:15 09:56 02/04/2020 09:56 Discharged to Home. Impression: Laceration without foreign body ph of left hand. Condition is Stable. Forms are Medication Reconciliation Form, Thank You Letter, Antibiotic Education, Prescription Opioid Use. Follow up: Private Physician; When: As needed; Reason: Wound Recheck, Recheck today's complaints, Continuance of care, Re-evaluation by your physician. Problem is new. Symptoms have improved. jr8
--- NOTE | 2020-02-04 09:57 | ER ---
Nurse's Notes [facility] Name: Ekaterina Chaudhari Age: 44 yrs Sex: Female : 1975 Arrival Date: 02/04/2020 Time: 09:19 Bed 19 Private MD: Diagnosis: Laceration without foreign body of left hand Presentation: 02/03 09:23 Chief complaint: Puncture wound to left palm from cutting apple with kitchen knife. hb Bleeding controlled. Coronavirus screen: At this time, the client does not indicate any symptoms associated with coronavirus-19. Ebola Screen: No symptoms or risks identified at this time. Complicating Factors: The type of wound is a puncture. Initial Sepsis Screen: Does the patient meet any 2 criteria? No. Patient's initial sepsis screen is negative. Does the patient have a suspected source of infection? No. Patient's initial sepsis screen is negative. Risk Assessment: Do you want to hurt yourself or someone else? Patient reports no desire to harm self or others. Onset of symptoms was February 04, 2020. 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 - Social history:: Smoking status: Patient denies any tobacco usage or history of. Screenin:13 Abuse screen: Denies threats or abuse. Denies injuries from another. Nutritional ph screening: No deficits noted. Tuberculosis screening: No symptoms or risk factors identified. Fall Risk None identified. Assessment: 10:14 General: Appears in no apparent distress. comfortable, well groomed, Behavior is calm, ph cooperative, appropriate for age. Pain: Complains of pain in left hand. Neuro: Level of Consciousness is awake, alert, obeys commands, Oriented to person, place, time, situation. Cardiovascular: Capillary refill < 3 seconds in bilateral fingers Patient's skin is warm and dry. Respiratory: Airway is patent Respiratory effort is even, unlabored, Respiratory pattern is regular, symmetrical. Musculoskeletal: Circulation, motion, and sensation intact. Range of motion: intact in all extremities. Injury Description: Laceration sustained to palm of left hand is clean, superficial, 0.5 to 2.5 cm long, not bleeding. Vital Signs: 09:23 BP 129 / 5; Pulse 82; Resp 16; Temp 98.2; Pulse Ox 98% ; Weight 107.5 kg; Height 5 ft. hb 5 in. (165.10 cm); Pain 7/10; 09:23 Body Mass Index 39.44 (107.50 kg, 165.10 cm) hb ED Course: 09:19 Patient arrived in ED. mr 09:25 Triage completed. hb 09:25 Arm band placed on. hb 09:27 Elizabeth Singh RN is Primary Nurse. ph 09:28 Kieran Hinds PA is PHCP. jrAnjelica 09:28 Adi Ferris MD is Attending Physician. jr8 10:13 Patient has correct armband on for positive identification. Bed in low position. Call ph light in reach. Side rails up X 1. Pulse ox on. NIBP on. 10:14 No provider procedures requiring assistance completed. Patient did not have IV access ph during this emergency room visit. Wound care: to laceration located on palm of left hand was cleaned with soap and water, dressed with 4X4s, Kerlix. Administered Medications: 10:02 Drug: Tetanus-Diphtheria Toxoid Adult 0.5 ml {Hospital Sales Representative: [email or web address]. Exp: ph 08/26/2022. Lot #: [id number]. } Route: IM; Site: right deltoid; 10:13 Follow up: Response: No adverse reaction ph Outcome: 09:56 Discharge ordered by MD. stacy 10:15 Discharged to home ambulatory. ph 10:15 Condition: good 10:15 Discharge instructions given to patient, Instructed on discharge instructions, follow up and referral plans. Demonstrated understanding of instructions, follow-up care. 10:15 Patient left the ED. ph Signatures: DelunaBinta campo mr Kieran Hinds PA PA jrElizabeth Staples RN RN ph Yun Keys RN RN
[2020-02-04] MEDS ORDERED: TETANUS & DIPHTHERIA TOX,ADULT 0.5 ML VIAL ONE (10:04)
[2020-02-04 10:23] VITALS: BP 129/5; TEMP 98.2; O2SAT 98
--- OUTSIDE RECORDS SUMMARY | 2020-02-04 10:26 | XMS REPORT | Clinical Summary ---
:1975 Author Organization [facility] Address [address] [place] [address] Care Team Providers Name Role Phone Lorna Primary Care Provider Allergies No Known Allergies [...] Not on file Results Not on fileafter 02/03/2019
== END 2020-02-04 10:15 | disposition home or self-care (01) ==
LOC: ER 09:16
DX: S61.412A Laceration without foreign body of left hand, initial encounter (principal); W45.8XXA Other foreign body or object entering through skin, initial encounter; Y93.89 Activity, other specified; Y92.89 Other specified places as the place of occurrence of the external cause; Y99.8 Other external cause status; Z23 Encounter for immunization
CPT/HCPCS: 90471; 90714; 99283

== ENCOUNTER 2021-03-01 19:45 | Emergency (ER) | payer OTHER ==
--- OUTSIDE RECORDS SUMMARY | 2021-03-01 19:48 | XMS REPORT | Continuity of Care Document ---
:1975 Author Organization [facility] t Address [address] [place] [address] Care Team Providers Name Role Phone Unavailable Unavailable Unavailable Problems This patient has no known problems. Allergies, Adverse Reactions, Alerts This patient has no known allergies or adverse reactions. Medications This patient has no known medications. Procedures This patient has no known procedures. Encounters Start End Encounter Admission Attending Care Care Encounter Source Date/Time Date/Time Type Type Clinicians Facility Department ID 2017-05-20 2017-05-20 Outpatient [facility] [id number] Access 00:00:00 00:00:00 H, PROVIDER Leonides wahl 2017-05-13 2017-05-13 Outpatient [facility] [id number] Access 00:00:00 00:00:00 H, PROVIDER Leonides wahl 2017-05-12 2017-05-12 Outpatient [facility] [id number] Access 00:00:00 00:00:00 H, PROVIDER Leonides wahl 2017-05-09 2017-05-09 Outpatient [facility] [id number] Access 00:00:00 00:00:00 H, PROVIDER Leonides alth Results This patient has no known results.
== END 2021-03-01 22:02 | disposition left against medical advice (07) ==
LOC: ER 19:45
DX: Z02.9 Encounter for administrative examinations, unspecified (principal)